=== PATIENT | female | born 1975 | race Caucasian/White ===

== ENCOUNTER 2018-01-02 07:59 | Day surgery (SDC) | payer BC ==
[~2018-01-02 07:59] MED LIST: Bupivacaine 25%/EPINEPHrine/PF 30 ML ONE; Clindamycin Phosphate in D5W 50 ML ONE
[2018-01-02] MEDS ORDERED: Lactated Ringers 1,000 ML IV SCH (08:00)
[2018-01-02] MEDS ORDERED: Bupivacaine 0.25%/EPINEPHrine 1:200,000 10 ML SDV INJECT ONE (08:00)
[2018-01-02] MEDS ORDERED: Acetaminophen/HYDROcodone 325-5 MG Tab PO PRN (08:00)
--- NOTE | 2018-01-02 08:27 | PCM.PREANE ---
Preanesthetic Assessment - Anesthesia/Transfusion/Family Hx Anesthesia History: Prior Anesthesia Without Reaction Family History of Anesthesia Reaction: No Transfusion History: No Prior Transfusion(s) - Review of Systems General: No Symptoms Pulmonary: No Symptoms Cardiovascular: No Symptoms Gastrointestinal: No Symptoms Neurological: No Symptoms Other: Reports: None - Physical Assessment NPO Status Date: 01/01/18 Height: 1.55 m Weight: 77.564 kg ASA Class: 2 Mental Status: Alert & Oriented x3 Airway Class: Mallampati = 1 Dentition: Reports: Normal Dentition ROM/Head Extension: Full Lungs: Clear to Auscultation, Normal Respiratory Effort Cardiovascular: Regular Rate, Regular Rhythm - Allergies Allergies/Adverse Reactions: Allergies Allergy/AdvReac Type Severity Reaction Status Date / Time penicillin Allergy Anaphylactic Verified 12/30/17 10:42 Shock - Anesthesia Plan Pre-Op Medication Ordered: None - Acknowledgements Anesthesia Type Planned: MAC Pt an Appropriate Candidate for the Planned Anesthesia: Yes Alternatives and Risks of Anesthesia Discussed w Pt/Guardian: Yes Pt/Guardian Understands and Agrees with Anesthesia Plan: Yes PreAnesthesia Questionnaire HEENT History: Reports: None Cardiovascular History: Reports: None Respiratory History: Reports: None Gastrointestinal History: Reports: GERD, Hiatal Hernia Genitourinary History: Reports: None 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: Musculoskeletal History: Reports: Other (See Below) Other Musculoskeletal History: 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 Neurological History: Reports: None Psychiatric History: Reports: None Endocrine/Metabolic History: Reports: Obesity/BMI 30+ Hematologic History: Reports: None Immunologic History: Reports: None Oncologic (Cancer) History: Reports: None Dermatologic History: Reports: None - Infectious Disease History Infectious Disease History: Reports: Chicken Pox Other Infectious Disease History: childhood - Past Surgical History Head Surgeries/Procedures: Reports: None HEENT Surgical History: Reports: None Cardiovascular Surgical History: Reports: None GI Surgical History: Reports: Cholecystectomy, Colonoscopy, EGD Other GI Surgeries/Procedures: states had "pouch removed from esphogus and hiatal hernia repair done at the same time", reflux in the past but none since hiatal hernia repair Female Surgical History: Reports: Section, Hysterectomy, Nephrectomy Other Female Surgeries/Procedures: donated left kidney to - SUBSTANCE USE Smoking Status *Q: Never Smoker Tobacco Use Within Last Twelve Months: No Second Hand Smoke Exposure: No Days Per Week of Alcohol Use: 0 Recreational Drug Use History: No - HOME MEDS Home Medications: Home Meds Cyclobenzaprine HCl 10 mg PO ASDIRECTED PRN 12/30/17 [History] Gabapentin [Neurontin] 300 mg PO TID 12/30/17 [History] Otcnatural Hormone Replacement 1 tab PO DAILY 12/30/17 [History] oxyCODONE HCl/Acetaminophen [Percocet 7.5-325 mg Tablet] 1 tab PO ASDIRECTED PRN 12/30/17 [History] - CURRENT (IN HOUSE) MEDS Current Meds: Current Medications Hydrocodone Bitart/Acetaminophen (Bison 325-5 Mg) 1 tab PO Q4H PRN PRN Reason: Pain Lactated Ringer's (Ringers, Lactated) 1,000 mls @ 125 mls/hr IV ASDIRECTED KATHERINE Clindamycin Phosphate 600 mg/ (Premix) 50 mls @ 100 mls/hr IV ONETIME ONE Stop: 01/02/18 09:59 Discontinued Medications Bupivacaine HCl/Epinephrine Bitart (Marcaine 0.25%/Epinephrine 1:200,000) 10 ml INJECT ONETIME ONE Stop: 01/02/18 08:01 Clindamycin Phosphate (Cleocin In D5w) Confirm Administered Dose 50 mls @ as directed .ROUTE .STK-MED ONE Stop: 01/02/18 07:27 Bupivacaine HCl/Epinephrine Bitart (Sensorc Mpf 0.25%-Epi 1:[id number]) Confirm Administered Dose 30 mls @ as directed .ROUTE .STK-MED ONE Stop: 01/02/18 07:28
[2018-01-02] MEDS ORDERED: Propofol 200 MG/20 ML SDV ONE (08:49)
[2018-01-02] MEDS ORDERED: Ketorolac 30 MG/ML SDV ONE (09:15)
[2018-01-02] MEDS ORDERED: Clindamycin Phosphate in D5W 600 MG in Premix Bag 50 BAG IV ONE ×2 (09:30)
--- NOTE | 2018-01-02 09:44 | PCM48HPAN ---
Post Anesthesia Note - EVALUATION WITHIN 48HRS OF ANESTHETIC Vital Signs in Normal Range: Yes Patient Participated in Evaluation: Yes Respiratory Function Stable: Yes Airway Patent: Yes Cardiovascular Function Stable: Yes Hydration Status Stable: Yes Pain Control Satisfactory: Yes Nausea and Vomiting Control Satisfactory: Yes Mental Status Recovered: Yes Resp Rate: 16
--- NOTE | 2018-01-02 09:44 | PCM.POSTAN ---
POST ANESTHESIA ASSESSMENT - MENTAL STATUS Mental Status: Alert, Oriented - RESPIRATORY Respiratory Status: Respiratory Rate WNL, Airway Patent, O2 Saturation Stable - CARDIOVASCULAR CV Status: Pulse Rate WNL, Blood Pressure Stable, Slow Pulse Rate - GASTROINTESTINAL GI Status: No Symptoms - POST OP HYDRATION Hydration Status: Adequate & Stable
[2018-01-02 10:13] VITALS: BP 126/60
--- NOTE | 2018-01-02 15:45 | PCM.OPNOTE ---
- General Post-Op/Procedure Note Date of Surgery/Procedure: 01/02/18 Operative Procedure(s): left carpal tunnel release Pre Op Diagnosis: left carpal tunnel Post-Op Diagnosis: Same Anesthesia Technique: Local, MAC Primary Surgeon: Kirti Calvillo Complications: None Condition: Good Free Text/Narrative:: Intake & Output 01/01/18 01/02/18 01/02/18 23:59 07:59 15:59 Intake Total 100 Balance 100
--- NOTE | 2018-01-06 14:01 | OR ---
SURGEON: ALBERTINA TOSCANO MD DATE OF PROCEDURE: 01/02/2018 PREOPERATIVE DIAGNOSIS: Left carpal tunnel syndrome. POSTOPERATIVE DIAGNOSIS: Left carpal tunnel syndrome. PROCEDURE: Left carpal tunnel release. ANESTHESIA: Local MAC. INDICATIONS: Ms. Murrieta is a 42-year-old female in evaluation for left carpal tunnel release. Risks and benefits were discussed. She was in agreement to proceed. She has failed conservative management. Risks were including, but not limited to, bleeding, infection, damage to underlying or overlying structures, possible need for future interventions, possible scarring. PROCEDURE IN DETAIL: After informed consent was obtained and placed on the chart, the patient was brought to the operating theater and laid in the supine position. After adequate local MAC anesthesia was obtained, the area was prepped and draped, a time-out was completed to confirm side and site. The arm was then exsanguinated and the tourniquet was insufflated to 200 mmHg after injection of local anesthesia. Attention was then paid to the transverse carpal ligament. A 15 blade was used to dissect through skin and subcutaneous tissues under direct visualization until breach of the ligament. Once breached, the dissection was carried distally and proximally under direct visualization. The area was then copiously irrigated. Once complete release was appreciated, I then closed using a 5-0 nylon stitch in a horizontal mattress fashion. The wound was dressed with Xeroform, fluffs, and a Kerlix gauze dressing and a 2- inch Felipe wrap. FOLLOWUP INSTRUCTIONS: The patient will see us in 10 to 14 days, sooner if any problems, questions, or concerns. She will rely on her already possessed medications for pain control as needed. TAMAR / VAMSI /[id number]
== END 2018-01-02 10:00 | disposition home or self-care (01) ==
LOC: MW.SDS 07:59
PROVIDERS: ATTEND Plastic Surgery
DX: G56.02 Carpal tunnel syndrome, left upper limb (principal); K21.9 Gastro-esophageal reflux disease without esophagitis; Z88.0 Allergy status to penicillin; Z79.899 Other long term (current) drug therapy
CPT/HCPCS: 64721; J1885; J7120; J2704

== ENCOUNTER 2018-12-23 20:30 | Emergency (ER) | payer BC ==
--- NOTE | 2018-12-23 21:12 | EDM.PDOC ---
ED HPI GENERAL MEDICAL PROBLEM - General Chief Complaint: General Stated Complaint: PAIN ON LEFT SIDE SHOULDER Time Seen by Provider: 12/23/18 21:11 Source of Information: Reports: Patient History Limitations: Reports: No Limitations - History of Present Illness INITIAL COMMENTS - FREE TEXT/NARRATIVE: HISTORY AND PHYSICAL: History of present illness: Patient is a 43-year-old female who presents to the emergency room today with complaints of left shoulder pain. She states this is chronic pain and does see Dr. Mast for her multiple pain issues. She states she has been out of her Percocets for [address] Mast did call her in a prescription, although her insurance won't allow her to fill it until tomorrow morning. She is here for pain management and is requesting something to get her through until the morning. She denies any injury, trauma or falls. Denies any numbness or tingling of the affected extremity. Patient denies any fever, chills, headache, change in vision, syncope or near syncope. Denies any chest pain, back pain, shortness of breath or cough. Denies any abdominal pain, nausea, vomiting, diarrhea, constipation or dysuria. Has not noted any blood in urine or stool. Patient has been eating and drinking appropriately. Review of systems: As per history of present illness and below otherwise all systems reviewed and negative. Past medical history: As per history of present illness and as reviewed below otherwise noncontributory. Surgical history: As per history of present illness and as reviewed below otherwise noncontributory. Social history: See social history for further information Family history: As per history of present illness and as reviewed below otherwise noncontributory. Physical exam: General: Well-developed and well-nourished 43-year-old female. Alert and oriented. Nontoxic appearing and in no acute distress HEENT: Atraumatic, normocephalic, pupils equal and reactive bilaterally, negative for conjunctival pallor or scleral icterus, mucous membranes moist, TMs normal bilaterally, throat clear, neck supple, nontender, trachea midline. No drooling or trismus noted. No meningeal signs. No hot potato voice noted. Lungs: Clear to auscultation, breath sounds equal bilaterally, chest nontender. Heart: S1S2, regular rate and rhythm without overt murmur Abdomen: Soft, nondistended, nontender. Negative for masses or hepatosplenomegaly. Negative for costovertebral tenderness. Pelvis: Stable nontender. Genitourinary: Deferred. Rectal: Deferred. Skin: Intact, warm, dry. No lesions or rashes noted. Extremities: Atraumatic, moves all extremities per self with difficulty or deficits, full range of motion of the affected shoulder. negative for cords or calf pain. Neurovascular unremarkable. Neuro: Awake, alert, oriented. Cranial nerves II through XII unremarkable. Cerebellum unremarkable. Motor and sensory unremarkable throughout. Exam nonfocal. Notes: X-ray shows no acute osseous injury. Will give 1 dose of Dilaudid IM here. As she rates her pain 10/10. She states she has an appointment next week with [facility]. She is able to fill her RX tomorrow.Supportive care measures were reviewed and discussed. Voices understanding and is agreeable to plan of care. Denies any further questions or concerns at this time. Diagnostics: Shoulder x-ray Therapeutics: Dilaudid Prescription: None Impression: Chronic Shoulder Pain, Left Plan: 1. Rest, ice, elevate the affected extremity. 2. Tylenol and/or Ibuprofen as needed for pain management. Fill your prescription tomorrow that you already have sent by [facility]. 3. Follow up with the Orthopedic provider as we discussed. Return to the ED as needed and as discussed. Definitive disposition and diagnosis as appropriate pending reevaluation and review of above. Left Neck Pain Score (Numeric/FACES): 8 - Related Data Allergies Allergy/AdvReac Type Severity Reaction Status Date / Time penicillin Allergy Anaphylactic Verified 12/23/18 21:11 Shock Home Meds: Home Meds Cyclobenzaprine HCl 10 mg PO ASDIRECTED PRN 12/30/17 [History] Gabapentin [Neurontin] 300 mg PO TID 12/30/17 [History] Otcnatural Hormone Replacement 1 tab PO DAILY 12/30/17 [History] oxyCODONE HCl/Acetaminophen [Percocet 7.5-325 mg Tablet] 1 tab PO ASDIRECTED PRN 12/30/17 [History] Past Medical History HEENT History: Reports: None Cardiovascular History: Reports: None Respiratory History: Reports: None Gastrointestinal History: Reports: GERD, Hiatal Hernia Genitourinary History: Reports: None 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: Musculoskeletal History: Reports: Other (See Below) Other Musculoskeletal History: 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 Neurological History: Reports: None Psychiatric History: Reports: None Endocrine/Metabolic History: Reports: Obesity/BMI 30+ Hematologic History: Reports: None Immunologic History: Reports: None Oncologic (Cancer) History: Reports: None Dermatologic History: Reports: None - Infectious Disease History Infectious Disease History: Reports: Chicken Pox Other Infectious Disease History: childhood - Past Surgical History Head Surgeries/Procedures: Reports: None HEENT Surgical History: Reports: None Cardiovascular Surgical History: Reports: None GI Surgical History: Reports: Cholecystectomy, Colonoscopy, EGD Other GI Surgeries/Procedures: states had "pouch removed from esphogus and hiatal hernia repair done at the same time", reflux in the past but none since hiatal hernia repair Female Surgical History: Reports: Section, Hysterectomy, Nephrectomy Other Female Surgeries/Procedures: donated left kidney to Social & Family History - Family History Family Medical History: Noncontributory - Caffeine Use Caffeine Use: Reports: Soda ED ROS GENERAL - Review of Systems Review Of Systems: ROS reveals no pertinent complaints other than HPI. ED EXAM, GENERAL - Physical Exam Exam: See Below (See dictation) Course - Vital Signs Last Recorded V/S: Last Vital Signs Temp 97.8 F 12/23/18 21:06 Pulse 107 H 12/23/18 21:06 Resp BP 159/108 H 12/23/18 21:06 Pulse Ox 95 12/23/18 21:06 - Orders/Labs/Meds Orders: Active Orders 24 hr Category Date Time Status Shoulder Comp Lt [CR] Stat Exams 12/23/18 21:12 Taken HYDROmorphone [Dilaudid] Med 12/23/18 21:50 Once 1 mg IM ONETIME ONE Departure - Departure Time of Disposition: 21:54 Disposition: Home, Self-Care 01 Clinical Impression: Chronic left shoulder pain - Discharge Information Instructions: Shoulder Pain Referrals: PCP,None [Primary Care Provider] - Forms: ED Department Discharge Additional Instructions: The following information is given to patients seen in the emergency department who are being discharged to home. This information is to outline your options for follow-up care. We provide all patients seen in our emergency department with a follow-up referral. The need for follow-up, as well as the timing and circumstances, are variable depending upon the specifics of your emergency department visit. If you don't have a primary care physician on staff, we will provide you with a referral. We always advise you to contact your personal physician following an emergency department visit to inform them of the circumstance of the visit and for follow-up with them and/or the need for any referrals to a consulting specialist. The emergency department will also refer you to a specialist when appropriate. This referral assures that you have the opportunity for follow-up care with a specialist. All of these measure are taken in an effort to provide you with optimal care, which includes your follow-up. Under all circumstances we always encourage you to contact your private physician who remains a resource for coordinating your care. When calling for follow-up care, please make the office aware that this follow-up is from your recent emergency room visit. If for any reason you are refused follow-up, please contact the [facility] Emergency Department at and asked to speak to the emergency department charge nurse. [facility] [address] [place] [id number] [place] [address] 1. Rest, ice, elevate the affected extremity. 2. Tylenol and/or Ibuprofen as needed for pain management. Fill your prescription tomorrow that you already have sent by [facility]. 3. Follow up with the Orthopedic provider as we discussed. Return to the ED as needed and as discussed. - My Orders Last 24 Hours: My Active Orders 12/23/18 21:12 Shoulder Comp Lt [CR] Stat 12/23/18 21:50 HYDROmorphone [Dilaudid] 1 mg IM ONETIME ONE - Assessment/Plan Last 24 Hours: My Active Orders 12/23/18 21:12 Shoulder Comp Lt [CR] Stat 12/23/18 21:50 HYDROmorphone [Dilaudid] 1 mg IM ONETIME ONE
[2018-12-23] MEDS ORDERED: HYDROmorphone 2 MG/ML SDV IM ONE (21:50)
[2018-12-23] MEDS ORDERED: HYDROmorphone 1 MG/ML Syringe ONE (22:04)
[2018-12-23 23:06] VITALS: BP 136/110
--- NOTE | 2018-12-24 11:23 | CR ---
EXAM DATE: 12/23/18 PATIENT'S AGE: 43 Patient: EVANGELINA CARL Facility: [facility] Site . Site : 1975 Study: XRay-Shoulder Left [id number]/3/2019 9:42:25 PM Ordering Physician: Doctor Allen Final Report: INDICATION: Left shoulder pain. TECHNIQUE: Shoulder radiographs 3 views COMPARISON: Left shoulder series dated 10/07/2014. FINDINGS: Bones: Alignment is normal. No acute fractures or aggressive osseous lesions seen. Joint spaces: The glenohumeral joint is unremarkable. The acromioclavicular (AC ) joint is normal in appearance. Soft tissues: The visualized hemithorax is unremarkable in appearance. No radiopaque foreign bodies are noted. IMPRESSION: 1. No acute osseous injuries are identified. Dictated by Brice Sepulveda MD @ 12/23/2018 9:45:18 PM Dictated by: Brice Sepulveda MD @ 12/23/2018 21:45:22 Signed by: Brice Sepulveda MD @12/23/2018 9:45:22 PM (Electronic Signature) Report Signed by Proxy. [facility]
== END 2018-12-23 22:59 | disposition home or self-care (01) ==
LOC: MW.ED 20:30
DX: G89.29 Other chronic pain (principal); M25.512 Pain in left shoulder; Z79.899 Other long term (current) drug therapy; Z88.0 Allergy status to penicillin
CPT/HCPCS: 73030; 96372; 99283; J1170

== ENCOUNTER 2018-12-25 20:01 | Emergency (ER) | payer BC ==
--- NOTE | 2018-12-25 20:31 | EDM.PDOC ---
ED HPI GENERAL MEDICAL PROBLEM - General Chief Complaint: Lower Extremity Injury/Pain Stated Complaint: BROUGHT IN BY AMBULANCE Time Seen by Provider: 12/25/18 20:10 Source of Information: Reports: Patient History Limitations: Reports: No Limitations - History of Present Illness INITIAL COMMENTS - FREE TEXT/NARRATIVE: HISTORY AND PHYSICAL: History of present illness: Patient is a 43-year-old female presents to the ED today via EMS with concern of right ankle injury. Patient states she was at a theater when she had tripped and twisted her right ankle and fell down 2 steps. Patient states she did not hit her head or lose consciousness. She states she did feel a "pop" when she twisted her ankle. Patient denies prior injury to the area. Per EMS, patient did receive 50 of fentanyl en route to the ER. Denies headache , neck stiff ness, change in vision, syncope, or near syncope. Denies nausea, vomiting. Review of systems: As per history of present illness and below otherwise all systems reviewed and negative. Past medical history: As per history of present illness and as reviewed below otherwise noncontributory. Surgical history: As per history of present illness and as reviewed below otherwise noncontributory. Social history: See social history for further information Family history: As per history of present illness and as reviewed below otherwise noncontributory. Physical exam: General: Patient is alert, oriented, and in no acute distress. She is lying comfortably on exam table. HEENT: Atraumatic, normocephalic, pupils equal and reactive bilaterally, negative for conjunctival pallor or scleral icterus, mucous membranes moist, TMs normal bilaterally, throat clear, neck supple, nontender, trachea midline. No drooling or trismus noted. No meningeal signs. No hot potato voice noted. Lungs: Clear to auscultation, breath sounds equal bilaterally, chest nontender. Heart: S1S2, regular rate and rhythm without overt murmur Abdomen: Soft, nondistended, nontender. Negative for masses or hepatosplenomegaly. Negative for costovertebral tenderness. Pelvis: Stable nontender. Genitourinary: Deferred. Rectal: Deferred. Skin: Intact, warm, dry. No lesions or rashes noted. Extremities: Splint is in place on right foot/ankle via EMS. Right ankle does have some edema surrounding the lateral malleolus. No obvious deformity or dislocation. Dorsalis pedis and posterior tibial pulses intact via dopper. ROM of right ankle limited due to pain. Patient does have full ROM and strength of all toes of right foot. Neurovascular unremarkable. Neuro: Awake, alert, oriented. Cranial nerves II through XII unremarkable. Cerebellum unremarkable. Motor and sensory unremarkable throughout. Exam nonfocal. Notes: Right ankle x-ray shows no acute osseous abnormality, fracture, or dislocation. These results were shared with the patient. Discussed the importance for follow- up with her primary care provider and orthopedics. Supportive care measures were reviewed and discussed. Voices understanding and is agreeable to plan of care. Denies any further questions or concerns at this time. Diagnostics: Right ankle XR Therapeutics: Aircast and crutches Prescription: None Impression: Right ankle sprain Plan: 1. Rest, ice, elevate the affected extremity. You can apply ice 15 minutes on, 15 minutes off. 2. Tylenol and/or Ibuprofen as directed for pain management or discomfort. 3. Follow up with the Orthopedic provider as discussed. Return to the ED as needed and as discussed. Definitive disposition and diagnosis as appropriate pending reevaluation and review of above. right ankle Pain Score (Numeric/FACES): 8 - Related Data Allergies Allergy/AdvReac Type Severity Reaction Status Date / Time penicillin Allergy Anaphylactic Verified 12/23/18 21:11 Shock Home Meds: Home Meds Cyclobenzaprine HCl 10 mg PO ASDIRECTED PRN 12/30/17 [History] Gabapentin [Neurontin] 300 mg PO TID 12/30/17 [History] Otcnatural Hormone Replacement 1 applic TOP ASDIRECTED 12/30/17 [History] oxyCODONE HCl/Acetaminophen [Percocet 7.5-325 mg Tablet] 1 tab PO ASDIRECTED PRN 12/30/17 [History] Venlafaxine HCl [Venlafaxine HCl ER] 150 mg PO DAILY 12/25/18 [History] Past Medical History HEENT History: Reports: None Cardiovascular History: Reports: None Respiratory History: Reports: None Gastrointestinal History: Reports: GERD, Hiatal Hernia Genitourinary History: Reports: None 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: Musculoskeletal History: Reports: Other (See Below) Other Musculoskeletal History: 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 Neurological History: Reports: None Psychiatric History: Reports: None Endocrine/Metabolic History: Reports: Obesity/BMI 30+ Hematologic History: Reports: None Immunologic History: Reports: None Oncologic (Cancer) History: Reports: None Dermatologic History: Reports: None - Infectious Disease History Infectious Disease History: Reports: Chicken Pox Other Infectious Disease History: childhood - Past Surgical History Head Surgeries/Procedures: Reports: None HEENT Surgical History: Reports: None Cardiovascular Surgical History: Reports: None GI Surgical History: Reports: Cholecystectomy, Colonoscopy, EGD Other GI Surgeries/Procedures: states had "pouch removed from esphogus and hiatal hernia repair done at the same time", reflux in the past but none since hiatal hernia repair Female Surgical History: Reports: Section, Hysterectomy, Nephrectomy Other Female Surgeries/Procedures: donated left kidney to Social & Family History - Family History Family Medical History: Noncontributory - Tobacco Use Smoking Status *Q: Never Smoker - Caffeine Use Caffeine Use: Reports: Soda - Recreational Drug Use Recreational Drug Use: No Review of Systems - Review of Systems Review Of Systems: ROS reveals no pertinent complaints other than HPI. ED EXAM, GENERAL - Physical Exam Exam: See Below (see dictation) Course - Vital Signs Last Recorded V/S: Last Vital Signs Temp 36.7 C 12/25/18 20:09 Pulse 109 H 12/25/18 20:09 Resp 16 12/25/18 20:09 BP 155/100 H 12/25/18 20:09 Pulse Ox 97 12/25/18 20:09 Departure - Departure Time of Disposition: 20:51 Disposition: Home, Self-Care 01 Clinical Impression: Ankle sprain Qualifiers: Encounter type: initial encounter Involved ligament of ankle: unspecified ligament Laterality: right Qualified Code(s): S93.401A - Sprain of unspecified ligament of right ankle, initial encounter - Discharge Information Instructions: Ankle Sprain, [id number] Forms: ED Department Discharge Additional Instructions: The following information is given to patients seen in the emergency department who are being discharged to home. This information is to outline your options for follow-up care. We provide all patients seen in our emergency department with a follow-up referral. The need for follow-up, as well as the timing and circumstances, are variable depending upon the specifics of your emergency department visit. If you don't have a primary care physician on staff, we will provide you with a referral. We always advise you to contact your personal physician following an emergency department visit to inform them of the circumstance of the visit and for follow-up with them and/or the need for any referrals to a consulting specialist. The emergency department will also refer you to a specialist when appropriate. This referral assures that you have the opportunity for follow-up care with a specialist. All of these measure are taken in an effort to provide you with optimal care, which includes your follow-up. Under all circumstances we always encourage you to contact your private physician who remains a resource for coordinating your care. When calling for follow-up care, please make the office aware that this follow-up is from your recent emergency room visit. If for any reason you are refused follow-up, please contact the [facility] Emergency Department at and asked to speak to the emergency department charge nurse. [facility] [address] [place] [address] [place] [address] [facility] - [facility] Clinic Professional Building [address] [place] [address], [address] [place] [address] 1. Rest, ice, elevate the affected extremity. You can apply ice 15 minutes on, 15 minutes off. 2. Tylenol and/or Ibuprofen as directed for pain management or discomfort. 3. Follow up with the Orthopedic provider as discussed. Return to the ED as needed and as discussed.
--- NOTE | 2018-12-25 20:45 | CR ---
INDICATION: fell down stairs RIGHT ANKLE No fracture, dislocation, or destructive lesion of bone is seen. No significant arthritic changes or soft tissue abnormalities are identified. IMPRESSION: Negative right ankle radiographs. KARSTEN OJEDA MD [facility] Dictated by: Koffi Ojeda MD @ 12/25/2018 20:43:40 (Electronically Signed)
[2018-12-25 21:18] VITALS: BP 137/92
== END 2018-12-25 21:15 | disposition home or self-care (01) ==
LOC: MW.ED 20:01
DX: S93.401A Sprain of unspecified ligament of right ankle, initial encounter (principal); Z88.0 Allergy status to penicillin; E66.9 Obesity, unspecified; X50.1XXA Overexertion from prolonged static or awkward postures, initial encounter
CPT/HCPCS: 73610-26-RT; 73610-RT; 99284-25

== ENCOUNTER 2019-08-18 08:00 | Day surgery (SDC) | payer BC ==
[~2019-08-18 08:00] MED LIST changes: +Bupivacaine 0.5% 30 ML SDV ONE; -Bupivacaine 25%/EPINEPHrine/PF 30 ML ONE; -Clindamycin Phosphate in D5W 50 ML ONE; +Dexamethasone/Tobramycin 0.1-0.3% Ophth Susp 2.5 ML Bottle ONE; +Lactated Ringers 1,000 ML IV SCH; +Lidocaine 2% 5 ML SDV ONE; +Midazolam 1 MG/ML 2 ML SDV ONE; +Propofol 200 MG/20 ML SDV ONE; +fentaNYL 100 MCG/2 ML SDV ONE
[2019-08-18] MEDS ORDERED: Clindamycin Phosphate in D5W 600 MG in Premix Bag 1 BAG IV SCH ×2 (08:31)
--- NOTE | 2019-08-18 09:16 | PCM.PREANE ---
Preanesthetic Assessment - Anesthesia/Transfusion/Family Hx Anesthesia History: Prior Anesthesia Without Reaction Family History of Anesthesia Reaction: No Transfusion History: No Prior Transfusion(s) Intubation History: Unknown - Review of Systems General: No Symptoms Pulmonary: No Symptoms Cardiovascular: No Symptoms Gastrointestinal: No Symptoms Neurological: No Symptoms Other: Reports: None - Physical Assessment NPO Status Date: 08/17/19 NPO Status Time: 23:00 Vital Signs: Last Vital Signs Temp 36.4 C 08/18/19 08:10 Pulse 104 H 08/18/19 08:10 Resp 20 08/18/19 08:10 BP 148/87 H 08/18/19 08:10 Pulse Ox 100 08/18/19 08:10 Height: 5 ft 1 in Weight: 74.843 kg ASA Class: 2 Mental Status: Alert & Oriented x3 Airway Class: Mallampati = 2 Dentition: Reports: Normal Dentition Thyro-Mental Finger Breadths: 3 Mouth Opening Finger Breadths: 3 ROM/Head Extension: Full Lungs: Clear to Auscultation, Normal Respiratory Effort Cardiovascular: Regular Rate, Regular Rhythm - Allergies Allergies/Adverse Reactions: Allergies Allergy/AdvReac Type Severity Reaction Status Date / Time penicillin Allergy Anaphylactic Verified 08/12/19 08:09 Shock - Blood Blood Available: No - Anesthesia Plan Pre-Op Medication Ordered: None - Acknowledgements Anesthesia Type Planned: MAC Pt an Appropriate Candidate for the Planned Anesthesia: Yes Alternatives and Risks of Anesthesia Discussed w Pt/Guardian: Yes Pt/Guardian Understands and Agrees with Anesthesia Plan: Yes PreAnesthesia Questionnaire HEENT History: Reports: None Cardiovascular History: Reports: None, Other (See Below) (h/o palpitations, not since esophageal surgery) Respiratory History: Reports: None Gastrointestinal History: Reports: GERD, Hiatal Hernia Other Gastrointestinal History: heartburn in the past Genitourinary History: Reports: None, Other (See Below) (left kidney donor 06/08 ) 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: Musculoskeletal History: Reports: Arthritis, Back Pain, Chronic Neurological History: Reports: None Psychiatric History: Reports: None Endocrine/Metabolic History: Reports: Obesity/BMI 30+ Hematologic History: Reports: None Immunologic History: Reports: None Oncologic (Cancer) History: Reports: None Dermatologic History: Reports: None - Infectious Disease History Infectious Disease History: Reports: Chicken Pox Other Infectious Disease History: childhood - Past Surgical History Head Surgeries/Procedures: Reports: None HEENT Surgical History: Reports: None Cardiovascular Surgical History: Reports: None Respiratory Surgical History: Reports: None GI Surgical History: Reports: Cholecystectomy, Colonoscopy, EGD, Rosmery Fundoplication Other GI Surgeries/Procedures: states had " inflamed esophageal diverticulum removed from esphogus and hiatal hernia repair" 06/07 Female Surgical History: Reports: Section (x3), Hysterectomy, Nephrectomy, Other (See Below) (laparoscopy) Other Female Surgeries/Procedures: donated left kidney to Endocrine Surgical History: Reports: None Neurological Surgical History: Reports: None Musculoskeletal Surgical History: Reports: Carpal Tunnel (left 12/07) Oncologic Surgical History: Reports: None - SUBSTANCE USE Smoking Status *Q: Never Smoker Recreational Drug Use History: No - HOME MEDS Home Medications: Home Meds Cyclobenzaprine HCl 10 mg PO ASDIRECTED PRN 12/30/17 [History] oxyCODONE HCl/Acetaminophen [Percocet 7.5-325 mg Tablet] 1 tab PO ASDIRECTED PRN 12/30/17 [History] Cholecalciferol (Vitamin D3) [Vitamin D3] 1 tab PO ASDIRECTED 08/12/19 [History] Diclofenac Sodium [Voltaren 1% Gel] 1 applic TOP ASDIRECTED PRN 08/12/19 [ History] Dicyclomine [Bentyl] 20 mg PO BEDTIME 08/12/19 [History] Estradiol [Vivelle-Dot] 1 patch TRDERM ASDIRECTED 08/12/19 [History] - CURRENT (IN HOUSE) MEDS Current Meds: Current Medications Lactated Ringer's (Ringers, Lactated) 1,000 mls @ 100 mls/hr IV ASDIRECTED [facility] Last Admin: 08/18/19 08:15 Dose: 100 mls/hr Clindamycin Phosphate 600 mg/ (Premix) 50 mls @ 100 mls/hr IV ONCALL [facility] Last Admin: 08/18/19 08:37 Dose: 100 mls/hr Discontinued Medications Bupivacaine HCl (Marcaine 0.5%) Confirm Administered Dose 30 ml .ROUTE .STK-MED ONE Stop: 08/18/19 07:44 Fentanyl (Sublimaze) Confirm Administered Dose 100 mcg .ROUTE .STK-MED ONE Stop: 08/18/19 07:55 Clindamycin Phosphate 600 mg/ (Sodium Chloride) 54 mls @ 100 mls/hr IV ONCALL [facility] Lidocaine (Xylocaine-Mpf 2%) Confirm Administered Dose 5 ml .ROUTE .STK-MED ONE Stop: 08/18/19 07:55 Midazolam HCl (Versed 1 Mg/Ml) Confirm Administered Dose 2 mg .ROUTE .STK-MED ONE Stop: 08/18/19 07:55 Propofol (Diprivan 20 Ml) Confirm Administered Dose 400 mg .ROUTE .STK-MED ONE Stop: 08/18/19 07:55 Tobramycin/Dexamethasone (Tobradex Ophth Susp) Confirm Administered Dose 2.5 ml .ROUTE .STK-MED ONE Stop: 08/18/19 07:44
[2019-08-18] MEDS ORDERED: Labetalol 100 MG/20 ML MDV ONE (09:55)
[2019-08-18] MEDS ORDERED: Dexamethasone 4 MG/ML 5 ML MDV ONE (10:07)
[2019-08-18] MEDS ORDERED: Acetaminophen/HYDROcodone 325-5 MG Tab PO PRN (10:36)
--- NOTE | 2019-08-18 10:46 | PCM.POSTAN ---
POST ANESTHESIA ASSESSMENT - MENTAL STATUS Mental Status: Alert, Oriented - VITAL SIGNS Vital Signs: Last Vital Signs Temp 36.4 C 08/18/19 08:10 Pulse 88 08/18/19 10:43 Resp 13 08/18/19 10:43 BP 104/38 L 08/18/19 10:43 Pulse Ox 97 08/18/19 10:43 - RESPIRATORY Respiratory Status: Respiratory Rate WNL, Airway Patent, O2 Saturation Stable - CARDIOVASCULAR CV Status: Pulse Rate WNL, Blood Pressure Stable - GASTROINTESTINAL GI Status: No Symptoms - PAIN Pain Score: 0 - POST OP HYDRATION Hydration Status: Adequate & Stable - OBSERVATIONS Free Text/Narrative:: No anesthesia problems
[2019-08-18 10:54] VITALS: BP 107/65; PULSE 81
--- NOTE | 2019-08-18 11:04 | PCM48HPAN ---
Post Anesthesia Note - EVALUATION WITHIN 48HRS OF ANESTHETIC Vital Signs in Normal Range: Yes Patient Participated in Evaluation: Yes Respiratory Function Stable: Yes Airway Patent: Yes Cardiovascular Function Stable: Yes Hydration Status Stable: Yes Pain Control Satisfactory: Yes Nausea and Vomiting Control Satisfactory: Yes Mental Status Recovered: Yes Vital Signs: Last Vital Signs Temp 36.4 C 08/18/19 08:10 Pulse 81 08/18/19 10:45 Resp 16 08/18/19 10:45 BP 107/65 08/18/19 10:45 Pulse Ox 96 08/18/19 10:45 - COMMENTS/OBSERVATIONS Free Text/Narrative:: No anesthesia problems
--- NOTE | 2019-08-18 15:06 | PCM.OPNOTE ---
- General Post-Op/Procedure Note Date of Surgery/Procedure: 08/18/19 Operative Procedure(s): right ctr Pre Op Diagnosis: right cts Post-Op Diagnosis: right cts Anesthesia Technique: Local, Moderate Sedation Primary Surgeon: Ivan Buckner EBL in mLs: 0 Complications: None Condition: Good Free Text/Narrative:: Intake & Output 08/18/19 08/18/19 08/18/19 06:59 14:59 22:59 Intake Total 750 Balance 750
--- NOTE | 2019-08-18 18:23 | OR ---
SURGEON: Ivan Buckner DATE OF PROCEDURE: 08/18/2019 PREOPERATIVE DIAGNOSIS: Right carpal tunnel syndrome. POSTOPERATIVE DIAGNOSIS: Right carpal tunnel syndrome. PROCEDURE: Right carpal tunnel release. PRIMARY SURGEON: Ivan Buckner D.O. ANESTHESIA: Local plus conscious sedation. FLUID: Lactate Ringer's solution. ESTIMATED BLOOD LOSS: 0. COMPLICATIONS: None. SPECIMENS: None. DISCHARGE DISPOSITION: Stable to PACU. TOURNIQUET TIME: 6 minutes. HISTORY AND INDICATIONS FOR THE PROCEDURE: The patient was seen preoperatively by myself in the clinic. She had a positive EMG for compression of the median nerve at the wrist. Risks and benefits of the procedure were explained to the patient and informed consent was obtained. DETAILS OF PROCEDURE: The patient was seen preoperatively by myself and the anesthesia staff in the preoperative holding area where the operative site was marked. She was brought to the operative suite by anesthesia staff where conscious sedation was administered and a well-padded tourniquet was placed on the right forearm. The right upper extremity was then prepped and draped in a sterile manner. Time-out was called to identify the correct patient, the correct procedure, the correct site, and then antibiotics had been given in an appropriate period of time. The right upper extremity was then exsanguinated. Tourniquet was raised to 200 mmHg and taken down at 6 minutes. Local anesthesia was then infiltrated. An incision was made just proximal to a line drawn from the first ray proximal to the Oh's cardinal line in line with the radial border of the 4th digit extending about 1.5 cm. Bleeding was controlled with bipolar electrocautery. Self-retaining retractor was used, went down to the transverse carpal ligament, divided with a 15 blade. I then went above and below the deep palmar fascia proximally and distally with long thin Metzenbaum, and then using a Ragnell, divided the transverse carpal ligament proximally and distally under correct visualization. I then irrigated with saline and then applied some dexamethasone over the median nerve. We then closed with 3-0 nylon interrupted mattresses followed by dressing which was Betadine soaked adaptic, Kerlix, and an MARLYS. The patient was allowed to wake from conscious sedation and taken to the PACU in stable condition. [id number] / MODL /[id number]
== END 2019-08-18 11:15 | disposition home or self-care (01) ==
LOC: MW.SDS 08:00
PROVIDERS: ATTEND Orthopaedic Surgery
DX: G56.01 Carpal tunnel syndrome, right upper limb (principal); K21.9 Gastro-esophageal reflux disease without esophagitis; M19.90 Unspecified osteoarthritis, unspecified site; E66.9 Obesity, unspecified; Z88.0 Allergy status to penicillin; Z68.35 Body mass index [BMI] 35.0-35.9, adult; Z79.899 Other long term (current) drug therapy
CPT/HCPCS: 64721; J1100; J2001; J2250; J2704; J3010; J3490; J7120; S0077; A9270-GY